=== PATIENT | female | born 1960 | race Native Hawaiian/Other Pacific Islander ===

== ENCOUNTER 2018-12-22 17:08 | Emergency (ER) | payer OTHER ==
[~2018-12-22] VITALS: Ht 165.1 cm; Wt 97.1 kg
[2018-12-22 17:21] LABS: PLATELET COUNT 325 K/uL (152-353)
[2018-12-22 17:28] LABS: POTASSIUM 3.8 mmol/L (3.6-5.2)
[2018-12-22 19:00] VITALS: BP 119/54; TEMP 97.8
[2018-12-22] MEDS ORDERED: LEVO0.2T35 PO (20:58)
[2018-12-22] MEDS ORDERED: OMEPRAZOLE20 M1 PO (20:58)
[2018-12-22] MEDS ORDERED: HALO50IN4 IM (21:01)
[2018-12-22] MEDS ORDERED: LISI10TA11 PO (21:01)
[2018-12-22] MEDS ORDERED: FURO40TA93 PO (21:02)
[2018-12-22] MEDS ORDERED: NULLO PO (21:02)
[2018-12-22] MEDS ORDERED: ZIPRASIDONE HYD40 MG PO (21:03)
[2018-12-22] MEDS ORDERED: KLOR-CON M1010 MEQ PO (21:03)
[2018-12-22] MEDS ORDERED: TOPAMAX100 MG PO (21:04)
[2018-12-22] MEDS ORDERED: CARAFATE1 GM PO (21:05)
[2018-12-22] MEDS ORDERED: ROPINIROLE1 MG PO (21:05)
[2018-12-22] MEDS ORDERED: MAGNSUS68 PO (21:06)
[2018-12-22] MEDS ORDERED: B-12500 MCG PO (21:07)
[2018-12-22] MEDS ORDERED: [UNRECOGNIZED DRUG - OTHER] PO (21:08)
[2018-12-22] MEDS ORDERED: BISMATROL525 MG/15 PO (21:10)
[2018-12-22] MEDS ORDERED: DECUBI-VITE PO (21:11)
[2018-12-22] MEDS ORDERED: CETI10TA PO (21:12)
[2018-12-22] MEDS ORDERED: TYLENOL325 M1 PO (21:12)
[2018-12-22] MEDS ORDERED: RISP0.5T2 PO (21:13)
[2018-12-22] MEDS ORDERED: FLUTMIS6 INH (21:13)
[2018-12-22] MEDS ORDERED: ARGINAID1 PAK PO (21:14)
[2018-12-22] MEDS ORDERED: BUPR150T PO (21:14)
[2018-12-22] MEDS ORDERED: PROAIR HFA INH (21:15)
[2018-12-22] MEDS ORDERED: TRAZODONE HYDR150 MG PO (21:17)
[2018-12-22] MEDS ORDERED: LORA0.5T17 PO (21:17)
[2018-12-22] MEDS ORDERED: HYDROXYZINE HYD25 MG PO (21:17)
[2018-12-22] MEDS ORDERED: OXYC5TAB53 PO (21:18)
[2018-12-22] MEDS ORDERED: [UNRECOGNIZED DRUG - OTHER] PO (21:20)
== END 2018-12-22 19:00 | disposition other institution (70) ==
LOC: ED 17:08
PROVIDERS: Family Medicine
DX: F32.89 Other specified depressive episodes (principal); R45.86 Emotional lability; F20.89 Other schizophrenia; Z04.6 Encounter for general psychiatric examination, requested by authority
CPT/HCPCS: 80053; 81000; 85027; 93005; 99285